=== PATIENT | female | born 1990 | race Caucasian/White ===

== ENCOUNTER 2016-08-12 07:28 | Emergency (ER) | payer OTHER ==
[~2016-08-12] VITALS: Ht 170.2 cm; Wt 78.9 kg
[~2016-08-12 07:28] MED LIST: Motrin PO
[2016-08-12 07:34] VITALS: BP 176/116
[2016-08-12] MEDS ORDERED: NAPROXEN500 MG PO (09:58)
[2016-08-12] MEDS ORDERED: PEN-VEE K,VEET500 MG PO (09:58)
== END 2016-08-12 10:30 | disposition home or self-care (01) ==
LOC: EME 07:28
PROC: 3E0T3BZ Introduction of Anesthetic Agent into Peripheral Nerves and Plexi, Percutaneous Approach (ICD-10-PCS; principal; 2016-08-12)
DX: K02.9 Dental caries, unspecified (principal); F17.200 Nicotine dependence, unspecified, uncomplicated
CPT/HCPCS: 99281; 99283